=== PATIENT | male | born 1965 | race Caucasian/White ===

== ENCOUNTER → 2017-12-31 | Outpatient (CLI) | payer OTHER ==
--- NOTE | 2017-12-31 09:31 | Diagnostic Imaging Report ---
PROCEDURE: CT left wrist without contrast. TECHNIQUE: Multiple contiguous axial images were obtained through the left wrist without the use of intravenous contrast. DATE: December 31, 2017. INDICATION: 52-year-old male, left wrist pain after fall. Evaluation for intra-articular fracture of the distal radius. COMPARISON: None available. FINDINGS: There is a mildly displaced comminuted intra-articular fracture of the distal radius. There is approximately 1.9 mm depression of the articulating surface of the distal radius in the region of the ulnar aspect of the scaphoid fossa. This is as measured on sagittal image 31. The depression spans a medial collateral dimension a 13 mm and anterior to posterior dimension of approximately 10 mm. The radial styloid fracture fragment is slightly radially displaced by approximately 1.3 mm measured on coronal image 40. The fracture of the distal radius does extend to the lunate fossa of the articulating surface of the distal radius without offset of the articulating surface in this location. The fracture does extend to Glenn's tubercle. The fracture extension to the distal radial ulnar joint. There is no additional identified fracture. There is no identified abnormal widening of the scapholunate or lunotriquetral intervals. There is no identified tendon entrapment. There are limitations for evaluation of the muscles and tendons on CT. There is nondiagnostic evaluation of the wrist ligaments. IMPRESSION: 1. Mildly displaced comminuted intra-articular fracture of the distal radius as detailed above. There is approximately 1.8 mm depression of the articulating surface of the distal radius in the region of the scaphoid fossa. Dictated by: Dictated on workstation # [id number]
== END ==
LOC: EDBD 07:49 → RAD 07:49
PROVIDERS: ATTEND Nurse Practitioner
DX: S52.572A Other intraarticular fracture of lower end of left radius, initial encounter for closed fracture (principal); W19.XXXA Unspecified fall, initial encounter
CPT/HCPCS: 73200